=== PATIENT | male | born 1975 | race Caucasian/White ===

== ENCOUNTER 2019-07-29 11:47 | Emergency (ER) | payer BC ==
--- OUTSIDE RECORDS SUMMARY | 2019-07-29 11:55 | XMS REPORT | Continuity of Care Document ---
:1975 External Reference #:[id number] Author Name April Espinal M.D. (transmitted by agent of provider Cintia Gil) Address [address] [place] [address] Care Team Providers Name Role Phone Zack Zhang MD - Family Medicine Care Team Information Sales Account Manager Problems Description No Information Available Social History Type Date Description Comments Sex Unknown ETOH Use Occasionally consumes alcohol Tobacco Use Start: Unknown Patient is a current smoker, smokes every day Smoking Status Reviewed: 07/10/19 Patient is a current smoker, smokes every day Exercise Type/Frequency Does not exercise Allergies, Adverse Reactions, Alerts Active Allergies Reaction Severity Comments Date Ibuprofen 06/19/2013 Medications Active Medications SIG Qnty Indications Ordering Provider Date Glucosamine Chondroitin 1 po qd Unknown 500 Complex 500Comp Capsules Aleve 1 po bid prn 60caps Unknown 220mg Capsules Multi-Vitamin 1 po qd 100tabs Unknown Tablets Medications Administered in Office Medication SIG Qnty Indications Ordering Provider Date No Injection April Espinal M.D. 12/14/2015 Injection Immunizations Description No Information Available Vital Signs Date Vital Result Comment 07/10/2019 2:39pm Height 71 inches 5'11" Weight 207.00 lb Heart Rate 74 /min BP Systolic 138 mmHg BP Diastolic 76 mmHg Respiratory Rate 12 /min Body Temperature 97.8 F Pain Level 1 BMI (Body Mass Index) 28.9 kg/m2 12/14/2015 8:24am Height 71 inches 5'11" Weight 185.00 lb Pain Level 3 BMI (Body Mass Index) 25.8 kg/m2 Results Description No Information Available Procedures Description No Information Available Medical Devices Description No Information Available Encounters Type Date Location Provider Dx Diagnosis Office Visit 07/10/2019 [facility] April Espinal, R22.31 Localized 2:30p at [facility] swelling, mass and lump, right upper limb Assessments Date Code Description Provider 07/10/2019 R22.31 Localized swelling, mass and lump, right April Espinal M.D. upper limb Plan of Treatment No Information Available Functional Status Description No Information Available Mental Status Description No Information Available Referrals Description No Information Available
--- OUTSIDE RECORDS SUMMARY | 2019-07-29 11:55 | XMS REPORT | Continuity of Care Document ---
:1975 External Reference #:[id number] Author Name April Espinal M.D. (transmitted by agent of provider Ora Ohara) Address [address] [facility] [place] [address] Care Team Providers Name Role Phone Zack Zhang MD - Family Medicine Care Team Information Microsoft Dynamics Developer Problems Description No Information Available Social History [...] Medical Devices Description No Information Available Encounters Description No Information Available Assessments Description No Information Available Plan of Treatment No Information Available Functional Status Description No Information Available Mental Status Description No Information Available Referrals Description No Information Available
--- NOTE | 2019-07-29 13:14 | UC ---
Throat Pain/Nasal Lazaro HPI - HPI Summary HPI Summary: 44-year-old male has a telehealth visit with a chief complaint of sore throat. This morning when he went to work they checked his temperature and it was worried as 99.1. Patient does not have any body aches. His granddaughter had strep recently and she just recently finished the antibiotics for the strep. No known contacts with anybody with Covid 19. Patient has not felt like he has a fever. Patient agreed to telehealth by phone. - History of Current Complaint Stated Complaint: SORE THROAT Time Seen by Provider: 07/29/19 11:58 - Allergies/Home Medications Allergies/Adverse Reactions: Allergies Allergy/AdvReac Type Severity Reaction Status Date / Time ibuprofen Allergy Vomiting Verified 07/29/19 11:49 Home Medications: Home Medications Diphenhydramine HCl [Benadryl] 25 mg PO DAILY 10/01/15 [History Confirmed ] Glucosamine/MSM/Chondroitin A [Glucosamine Chondroitin &] 1 tab PO DAILY [History Confirmed 10/02/15] Multiple Vitamins W/ Minerals [Multivitamin Men] 1 tab PO DAILY 10/01/15 [ History Confirmed 10/02/15] Naproxen Sodium [Aleve] 2 tab PO DAILY PRN 10/01/15 [History Confirmed 10/02/15] Amoxicillin PO (*) [Amoxicillin 875 MG (*)] 875 mg PO BID #20 tab 07/29/19 [Rx] PMH/Surg Hx/FS Hx/Imm Hx Previously Healthy: Yes - Surgical History Surgical History: None - Family History Known Family History: Positive: Non-Contributory - Social History Alcohol Use: Occasionally Alcohol Amount: 3 BEER X WEEK Substance Use Type: None Smoking Status (MU): Heavy Every Day Tobacco Smoker Type: Cigarettes Household Exposure Type: Cigarettes Review of Systems All Other Systems Reviewed And Are Negative: Yes Constitutional: Positive: Other - SEE HPI Skin: Positive: Negative Eyes: Positive: Negative ENT: Positive: Sore Throat Respiratory: Positive: Negative Cardiovascular: Positive: Negative Musculoskeletal: Negative: Myalgia Neurological/Mental Status: Positive: Negative Psychological: Positive: Negative Is Patient Immunocompromised?: No Physical Exam - Summary Physical Exam Summary: This is telehealth visit that was done by phone. Therefore there is no physical exam. Triage Information Reviewed: No Throat Pain/Nasal Course/Dx - Course Course Of Treatment: Rapid strep was negative. Discussed viral versus bacterial infections and the role of antibiotics. Patient prefers to have a prescription for antibiotic at this time if his symptoms do not improve. At this time from my telehealth interview patient does not have a fever above 99.1 by history he does not have any cough or shortness of breath or known contacts with covid 19. If the patient gets worse he is to get reevaluated. - Differential Dx/Diagnosis Provider Diagnosis: Pharyngitis Discharge ED - Sign-Out/Discharge Documenting (check all that apply): Patient Departure All imaging exams completed and their final reports reviewed: No Studies - Discharge Plan Condition: Stable Disposition: HOME Prescriptions: Amoxicillin PO (*) [Amoxicillin 875 MG (*)] 875 mg PO BID #20 tab Patient Education Materials: Pharyngitis (ED) Referrals: Nora Juan, PERSONAL FINANCIAL COUNSELOR [Primary Care Provider] - Additional Instructions: FOLLOW UP WITH YOUR DOCTOR IF NOT COMPLETELY IMPROVED. GET REEVALUATED IF NOT IMPROVED OR WORSE; FEVER, YOU FEEL ILL, SHORTNESS OF BREATH OR ANY QUESTIONS OR CONCERNS. - Billing Disposition and Condition Condition: STABLE Disposition: Home
== END 2019-07-29 13:27 | disposition home or self-care (01) ==
LOC: UCEAST 11:47
DX: J02.9 Acute pharyngitis, unspecified (principal); Z88.6 Allergy status to analgesic agent; F17.210 Nicotine dependence, cigarettes, uncomplicated
CPT/HCPCS: 87651; 99211; G0463